=== PATIENT | female | born 1960 | race Caucasian/White ===

== ENCOUNTER 2020-08-31 18:58 | Inpatient (IN) | payer MEDICAID ==
[~2020-08-31] VITALS: Ht 162.6 cm; Wt 79.5 kg
[2020-08-31] MEDS ORDERED: labetalol 20mg/4ml (5mg/ml) syringe IV ONE ×2 (19:10→19:40)
[2020-08-31 19:48] LABS: BASOPHILS # (AUTO) 0.1 X10'3 (0-0.2); BASOPHILS % (AUTO) 0.3 % (0-1); EOSINOPHILS % (AUTO) 0.1 % (0-6); HEMATOCRIT 51.2 % (35.0-45.0); HEMOGLOBIN 17.5 g/dl (12.0-16.0); LYMPHOCYTES # (AUTO) 0.7 X10'3 (1.1-4.8); LYMPHOCYTES % (AUTO) 4.2 % (21-51); MEAN CORPUSCULAR HEMOGLOBIN 32.6 PG (27.0-31.0); MEAN CORPUSCULAR HGB CONC 34.2 g/dL (33.0-36.5); MEAN CORPUSCULAR VOLUME 95.2 FL (78-98); MEAN PLATELET VOLUME 9.5 FL (7.4-10.4); MONOCYTES # (AUTO) 0.8 X10'3 (0-0.9); MONOCYTES % (AUTO) 5.3 % (2-12); NEUTROPHILS # (AUTO) 14.3 X10'3 (1.8-7.7); NEUTROPHILS % (AUTO) 90.1 % (42-75); PLATELET COUNT 262 X10'3 (140-440); RED BLOOD COUNT 5.37 X10'6 (4.20-5.60); RED CELL DISTRIBUTION WIDTH 13.3 % (11.5-14.5); WHITE BLOOD COUNT 15.9 X10'3 (4.5-11.0)
[2020-08-31 19:50] LABS: ALANINE AMINOTRANSFERASE 35 U/L (12-78); ALBUMIN 3.6 G/DL (3.4-5.0); ALBUMIN/GLOBULIN RATIO 0.9 (1.1-1.5); ALKALINE PHOSPHATASE 86 IU/L (46-116); ANION GAP 13 (8-16); ASPARTATE AMINO TRANSFERASE 35 U/L (10-37); BILIRUBIN,TOTAL 1.1 MG/DL (0.1-1.0); BLOOD UREA NITROGEN 24 MG/DL (7-18); BUN/CREATININE RATIO 14.2 (6.6-38.0); CHLORIDE 101 MMOL/L (99-107); CREATININE 1.69 MG/DL (0.40-0.90); GLUCOSE 308 MG/DL (70-104); POTASSIUM 3.9 MMOL/L (3.5-5.1); SODIUM 136 MMOL/L (135-145); TOTAL CARBON DIOXIDE 21.6 MMOL/L (24-32); TOTAL PROTEIN 7.8 G/DL (6.4-8.2); eGFR 31 ML/MIN
[2020-08-31] MEDS ORDERED: lisinopril 10 MG tablet PO ONE (19:55)
[2020-08-31 19:59] LABS: ETHANOL < 0.010 GM/DL (0.0-0.010)
[2020-08-31] MEDS ORDERED: lisinopril 20mg tablet PO ONE (20:00)
[2020-08-31 20:30] LABS: URINE AMPHETAMINE SCREEN NEGATIVE (Neg); URINE BARBITUATE SCREEN NEGATIVE (Neg); URINE BENZODIAZEPINES SCREEN NEGATIVE (Neg); URINE CANNABINOID SCREEN POSITIVE (Neg); URINE COCAINE SCREEN NEGATIVE (Neg); URINE METHADONE SCREEN NEGATIVE (Neg); URINE OPIATE SCREEN POSITIVE (Neg); URINE PHENCYCLIDINE SCREEN NEGATIVE (Neg)
[2020-08-31] MEDS ORDERED: LISI40TA13 PO (20:30)
[2020-08-31] MEDS ORDERED: potassium Cl 20 mEq SR tablet PO PRN ×2 (20:30)
[2020-08-31] MEDS ORDERED: magnesium hydroxide 30ml (MOM) UD suspension PO PRN (20:30)
[2020-08-31] MEDS ORDERED: acetaminophen 325mg tablet PO PRN (20:30)
[2020-08-31] MEDS ORDERED: potassium Cl 40MEQ/1/2NS 520ml 520 ML IV PRN ×2 (20:30)
[2020-08-31] MEDS ORDERED: HYDROcodone/acetaminophen 5mg/325mg tablet PO PRN (20:30)
[2020-08-31] MEDS ORDERED: CARV-50 PO (20:32)
[2020-08-31] MEDS ORDERED: LEVO75TA PO (20:32)
[2020-08-31] MEDS ORDERED: GABA-530 PO (20:32)
[2020-08-31] MEDS ORDERED: dextrose ORAL solution 15 GM/59 ML bottle PO PRN ×2 (20:35)
[2020-08-31] MEDS ORDERED: MESSAGE TO PHARMACY PO ONE (20:35)
[2020-08-31] MEDS ORDERED: insulin Lispro (HumaLOG) vial - multi-dose SQ SCH (20:35)
[2020-08-31] MEDS ORDERED: glucagon, human recombinant 1mg kit SUBCUT PRN (20:35)
[2020-08-31] MEDS ORDERED: dextrose 50%-water 50ml dispensing syringe IV PRN ×2 (20:35)
[2020-08-31 20:48] LABS: HEMOGLOBIN A1C 6.2 % (4.5-6.2)
[2020-08-31] MEDS: ondansetron/PF 4mg/2ml inj IV PRN (21:05)
[2020-08-31] MEDS: mag hydrox/Alum hydrox/simeth 30ml oral suspension PO PRN (21:06)
[2020-08-31] MEDS ORDERED: ESCI-8 PO (22:26)
[2020-09-01 01:30] LABS: ALANINE AMINOTRANSFERASE 43 U/L (12-78); ALBUMIN 3.7 G/DL (3.4-5.0); ALBUMIN/GLOBULIN RATIO 0.9 (1.1-1.5); ALKALINE PHOSPHATASE 83 IU/L (46-116); ANION GAP 12 (8-16); ASPARTATE AMINO TRANSFERASE 51 U/L (10-37); BILIRUBIN,TOTAL 1.1 MG/DL (0.1-1.0); BLOOD UREA NITROGEN 28 MG/DL (7-18); BUN/CREATININE RATIO 14.8 (6.6-38.0); CALCIUM 8.1 MG/DL (8.5-10.1); CHLORIDE 97 MMOL/L (99-107); CREATININE 1.89 MG/DL (0.40-0.90); GLUCOSE 239 MG/DL (70-104); POTASSIUM 4.1 MMOL/L (3.5-5.1); SODIUM 139 MMOL/L (135-145); TOTAL PROTEIN 7.9 G/DL (6.4-8.2); eGFR 27 ML/MIN
[2020-09-01] MEDS ORDERED: proCHLORperazine 10 MG/2 ml inj IV ONE (02:00)
[2020-09-01 07:49] LABS: BASOPHILS % (AUTO) 0.3 % (0-1); EOSINOPHILS % (AUTO) 0 % (0-6); HEMATOCRIT 48.2 % (35.0-45.0); HEMOGLOBIN 16.3 g/dl (12.0-16.0); LYMPHOCYTES # (AUTO) 1.2 X10'3 (1.1-4.8); LYMPHOCYTES % (AUTO) 8.5 % (21-51); MEAN CORPUSCULAR HEMOGLOBIN 32.1 PG (27.0-31.0); MEAN CORPUSCULAR HGB CONC 33.7 g/dL (33.0-36.5); MEAN PLATELET VOLUME 9.3 FL (7.4-10.4); MONOCYTES # (AUTO) 1.7 X10'3 (0-0.9); MONOCYTES % (AUTO) 12.4 % (2-12); NEUTROPHILS % (AUTO) 78.8 % (42-75); PLATELET COUNT 254 X10'3 (140-440); RED BLOOD COUNT 5.07 X10'6 (4.20-5.60); RED CELL DISTRIBUTION WIDTH 13.5 % (11.5-14.5); WHITE BLOOD COUNT 13.9 X10'3 (4.5-11.0)
[2020-09-01] MEDS ORDERED: nitroGLYCERIN 0.4mg SUBLingual tab SL PRN (07:50)
[2020-09-01] MEDS ORDERED: metoprolol tartrate 1mg/ml inj IV PRN (07:50)
[2020-09-01] MEDS ORDERED: regadenoson 0.4mg/5ml syringe IV PRN (07:50)
[2020-09-01] MEDS ORDERED: aminophylline 250mg/10ml inj. IV PRN (07:50)
[2020-09-01] MEDS ORDERED: aspirin 81mg tablet.DR PO ONE (07:55)
[2020-09-01] MEDS ORDERED: lisinopril 10 MG tablet PO SCH (08:00)
[2020-09-01] MEDS: K and/or MAG REPLACEMENT MC SCH ×2 (08:00→20:00)
[2020-09-01] MEDS ORDERED: heparin, porcine 5000 units/ml vial SQ SCH (08:00)
[2020-09-01] MEDS ORDERED: levoTHYROXINE 75mcg tablet PO SCH (08:00)
[2020-09-01] MEDS ORDERED: carVEDilol 12.5mg tablet PO SCH (08:00)
[2020-09-01] MEDS ORDERED: non-formulary drug (Lisinopril* 1 TAB) PO SCH (08:00)
[2020-09-01] MEDS ORDERED: heparin 10,000 units/1 ML INJ IV ONE (08:25)
[2020-09-01] MEDS: gabapentin 100mg capsule PO SCH ×2 (08:45→19:52)
[2020-09-01] MEDS: lisinopril 20mg tablet PO SCH (08:45)
[2020-09-01] MEDS: carVEDilol 12.5mg tablet PO SCH ×2 (08:45→19:53)
[2020-09-01] MEDS: aspirin 81mg tablet.DR PO SCH (08:45)
[2020-09-01 09:36] LABS: PARTIAL THROMBOPLASTIN TIME 30 SECONDS (22-32)
[2020-09-01] MEDS: heparin 25,000 UNIT/250ml bag 250 ML IV SCH (09:38)
[2020-09-01] MEDS: mag hydrox/Alum hydrox/simeth 30ml oral suspension PO PRN ×2 (09:39→15:48)
[2020-09-01 09:47] LABS: CHOL/HDL RATIO 2.4 (0.00-4.99); CHOLESTEROL 178 MG/DL (0-200); HDL CHOLESTEROL 73 MG/DL (35-60); LDL CHOLESTEROL 70 MG/DL (50-100); TRIGLYCERIDES 185 MG/DL (20-135)
--- NOTE | 2020-09-01 10:25 | NUR ---
pt moved to bed 5 for procedure
[2020-09-01] MEDS ORDERED: PERFLUTREN PROTEIN-A MICROSPHR 0.22 MG/ML 3ML VIAL IV ONE (11:00)
[2020-09-01] MEDS: ondansetron/PF 4mg/2ml inj IV PRN ×2 (11:08→17:33)
--- NOTE | 2020-09-01 11:50 | NUR ---
Patient in room PCU 3027. I have received report from Celso LOCKE in ER and had the opportunity to ask questions. Pt arrive to unit at 1149 and care assumed.
[2020-09-01 12:00] VITALS: BP 162/84
[2020-09-01 15:00] VITALS: BP 165/79
[2020-09-01] MEDS: HYDROcodone/acetaminophen 10/325mg tab PO PRN ×2 (15:45→20:42)
[2020-09-01] MEDS: heparin 10,000 units/1 ML INJ IV PRN (16:50)
--- NOTE | 2020-09-01 17:29 | NUR ---
Critical Lab value: Troponin; Dr. Radha slade. "RE: Oliver Strong: 3027B: Troponin 1.20 (previous value 1.7), Dk Mckeon #[id number]"
[2020-09-01 18:00] VITALS: BP 158/101
--- NOTE | 2020-09-01 18:10 | NUR ---
Problems reprioritized. Patient report given, questions answered & plan of care reviewed with Pebbles LOCKE. Pt IV patent. pt denies chest pain. no sob. no s/sx acute distress
[2020-09-01] MEDS: pantoprazole 40mg Tablet.DR PO SCH (19:53)
[2020-09-01] MEDS: ESCITALOPRAM OXALATE 5 MG TABLET PO SCH (20:42)
[2020-09-01 22:00] VITALS: BP 100/50
[2020-09-01 22:10] LABS: H PYLORI ANTIBODY POSITIVE (Neg)
[2020-09-02] VITALS (15 sets, daily range): BP systolic 100–182; BP diastolic 48–90
[2020-09-02] MEDS: hyDRALAzine 10mg tablet PO SCH ×3 (00:17→17:29)
[2020-09-02] MEDS: ondansetron/PF 4mg/2ml inj IV PRN ×3 (00:20→18:47)
--- NOTE | 2020-09-02 06:03 | NUR ---
Problems reprioritized. Patient report given, questions answered & plan of care reviewed with CORNELIA Cyr.
--- NOTE | 2020-09-02 06:59 | NUR ---
Patient in room PCU 3027. I have received report from Pebbles LOCKE and had the opportunity to ask questions and assume patient care. Pt right side lying, blankets pulled up to chin, chest rising and falling evenly, Heparin on hold. SRx2, CL within reach, BLL. no s/sx acute distress. Addendum: 09/02/20 at 0705 by Klarissa Pack RN note: heparin on hold for lab draw.
[2020-09-02 07:38] LABS: BASOPHILS # (AUTO) 0.1 X10'3 (0-0.2); BASOPHILS % (AUTO) 0.8 % (0-1); EOSINOPHILS # (AUTO) 0.1 X10'3 (0-0.9); EOSINOPHILS % (AUTO) 1.3 % (0-6); HEMATOCRIT 40.4 % (35.0-45.0); HEMOGLOBIN 13.9 g/dl (12.0-16.0); LYMPHOCYTES # (AUTO) 1.5 X10'3 (1.1-4.8); LYMPHOCYTES % (AUTO) 16.4 % (21-51); MEAN CORPUSCULAR HEMOGLOBIN 32.8 PG (27.0-31.0); MEAN CORPUSCULAR HGB CONC 34.5 g/dL (33.0-36.5); MEAN CORPUSCULAR VOLUME 95.3 FL (78-98); MEAN PLATELET VOLUME 9.2 FL (7.4-10.4); MONOCYTES # (AUTO) 1.1 X10'3 (0-0.9); MONOCYTES % (AUTO) 11.8 % (2-12); NEUTROPHILS # (AUTO) 6.5 X10'3 (1.8-7.7); NEUTROPHILS % (AUTO) 69.7 % (42-75); PLATELET COUNT 197 X10'3 (140-440); RED BLOOD COUNT 4.24 X10'6 (4.20-5.60); RED CELL DISTRIBUTION WIDTH 13.4 % (11.5-14.5); WHITE BLOOD COUNT 9.3 X10'3 (4.5-11.0)
[2020-09-02] MEDS: K and/or MAG REPLACEMENT MC SCH ×2 (08:00→20:00)
[2020-09-02 08:15] LABS: ALANINE AMINOTRANSFERASE 45 U/L (12-78); ALBUMIN 3.1 G/DL (3.4-5.0); ALBUMIN/GLOBULIN RATIO 0.9 (1.1-1.5); ALKALINE PHOSPHATASE 58 IU/L (46-116); ANION GAP 6 (8-16); ASPARTATE AMINO TRANSFERASE 85 U/L (10-37); BILIRUBIN,TOTAL 1.2 MG/DL (0.1-1.0); BLOOD UREA NITROGEN 41 MG/DL (7-18); BUN/CREATININE RATIO 28.1 (6.6-38.0); CALCIUM 7.9 MG/DL (8.5-10.1); CHLORIDE 100 MMOL/L (99-107); CREATININE 1.46 MG/DL (0.40-0.90); GLUCOSE 137 MG/DL (70-104); POTASSIUM 4.2 MMOL/L (3.5-5.1); SODIUM 134 MMOL/L (135-145); TOTAL CARBON DIOXIDE 27.7 MMOL/L (24-32); TOTAL PROTEIN 6.4 G/DL (6.4-8.2); eGFR 37 ML/MIN
[2020-09-02] MEDS: gabapentin 100mg capsule PO SCH ×2 (08:41→19:42)
[2020-09-02] MEDS: levoTHYROXINE 100mcg tablet PO SCH (08:41)
[2020-09-02] MEDS: pantoprazole 40mg Tablet.DR PO SCH (08:41)
--- NOTE | 2020-09-02 08:48 | NUR ---
Pt to stress test pt left unit at 0845 to go to stress test. Heparin running at 900. BP meds, asa held until pt returns. pt without HTN. no s/sx acute distress
[2020-09-02] MEDS ORDERED: regadenoson 0.4mg/5ml syringe IV PRN (09:00)
[2020-09-02] MEDS: carVEDilol 12.5mg tablet PO SCH ×2 (11:43→19:41)
[2020-09-02] MEDS: HYDROcodone/acetaminophen 10/325mg tab PO PRN ×2 (11:43→18:47)
[2020-09-02] MEDS: aspirin 81mg tablet.DR PO SCH (11:44)
[2020-09-02] MEDS: lisinopril 20mg tablet PO SCH (11:44)
[2020-09-02] MEDS: heparin 25,000 UNIT/250ml bag 250 ML IV SCH ×2 (14:39→17:28)
--- NOTE | 2020-09-02 17:14 | NUR ---
Dr. Valdivia to see patient Dr. Valdivia to bedside, spoke at length with pt. discussed risks vs benefits of medication/medical management/life style changes versus angiogram. Pt prefers medical therapy to angiogram. new orders received to start pt on lipitor 40mg Qday starting tonight. MD discussed pt to lose 10 lbs, abstain from alcohol, take medications regularly and get exercise. Pt adamantly agreed this is the route she prefers. Doc OK pt to eat heart healthy diet.
--- NOTE | 2020-09-02 18:26 | NUR ---
Problems reprioritized. Patient report given, questions answered & plan of care reviewed with Pebbles LOCKE. Heparin running at 900/hr.
[2020-09-02] MEDS: heparin 10,000 units/1 ML INJ IV PRN (19:46)
[2020-09-02] MEDS: ESCITALOPRAM OXALATE 5 MG TABLET PO SCH (20:25)
[2020-09-02] MEDS ORDERED: insulin glargine (Lantus) pen - multi-dose SQ SCH (21:00)
[2020-09-02] MEDS ORDERED: atorvastatin 20mg tablet PO SCH (21:00)
[2020-09-03] MEDS: hyDRALAzine 10mg tablet PO SCH ×2 (00:06→07:51)
[2020-09-03 02:00] VITALS: BP 112/54
[2020-09-03] MEDS: ondansetron/PF 4mg/2ml inj IV PRN (02:02)
[2020-09-03] MEDS: HYDROcodone/acetaminophen 10/325mg tab PO PRN ×2 (02:03→09:20)
[2020-09-03 02:14] LABS: BASOPHILS # (AUTO) 0.1 X10'3 (0-0.2); BASOPHILS % (AUTO) 1.3 % (0-1); EOSINOPHILS # (AUTO) 0.2 X10'3 (0-0.9); EOSINOPHILS % (AUTO) 2.5 % (0-6); HEMOGLOBIN 13.2 g/dl (12.0-16.0); LYMPHOCYTES # (AUTO) 1.7 X10'3 (1.1-4.8); LYMPHOCYTES % (AUTO) 26.2 % (21-51); MEAN CORPUSCULAR HEMOGLOBIN 32.3 PG (27.0-31.0); MEAN CORPUSCULAR HGB CONC 33.9 g/dL (33.0-36.5); MEAN CORPUSCULAR VOLUME 95.1 FL (78-98); MEAN PLATELET VOLUME 9.2 FL (7.4-10.4); MONOCYTES # (AUTO) 0.7 X10'3 (0-0.9); MONOCYTES % (AUTO) 11.6 % (2-12); NEUTROPHILS # (AUTO) 3.8 X10'3 (1.8-7.7); NEUTROPHILS % (AUTO) 58.4 % (42-75); PLATELET COUNT 179 X10'3 (140-440); WHITE BLOOD COUNT 6.4 X10'3 (4.5-11.0)
[2020-09-03 02:15] LABS: ALANINE AMINOTRANSFERASE 53 U/L (12-78); ALBUMIN 2.8 G/DL (3.4-5.0); ALBUMIN/GLOBULIN RATIO 0.8 (1.1-1.5); ALKALINE PHOSPHATASE 58 IU/L (46-116); ANION GAP 5 (8-16); ASPARTATE AMINO TRANSFERASE 77 U/L (10-37); BILIRUBIN,TOTAL 0.8 MG/DL (0.1-1.0); BLOOD UREA NITROGEN 44 MG/DL (7-18); BUN/CREATININE RATIO 30.3 (6.6-38.0); CALCIUM 7.8 MG/DL (8.5-10.1); CHLORIDE 101 MMOL/L (99-107); CREATININE 1.45 MG/DL (0.40-0.90); GLUCOSE 111 MG/DL (70-104); POTASSIUM 4.5 MMOL/L (3.5-5.1); SODIUM 137 MMOL/L (135-145); TOTAL CARBON DIOXIDE 30.6 MMOL/L (24-32); TOTAL PROTEIN 6.1 G/DL (6.4-8.2); eGFR 37 ML/MIN
--- NOTE | 2020-09-03 06:03 | NUR ---
Patient in room PCU 3027. I have received report from Pebbles LOCKE and had the opportunity to ask questions and assume patient care.
--- NOTE | 2020-09-03 06:20 | NUR ---
Problems reprioritized. Patient report given, questions answered & plan of care reviewed with Norma Zapata RN.
[2020-09-03 07:00] VITALS: BP 112/50
[2020-09-03] MEDS: levoTHYROXINE 100mcg tablet PO SCH (07:50)
[2020-09-03] MEDS: aspirin 81mg tablet.DR PO SCH (07:50)
[2020-09-03] MEDS: pantoprazole 40mg Tablet.DR PO SCH (07:51)
[2020-09-03] MEDS: lisinopril 20mg tablet PO SCH (07:51)
[2020-09-03] MEDS: gabapentin 100mg capsule PO SCH (07:51)
[2020-09-03] MEDS: carVEDilol 12.5mg tablet PO SCH (07:52)
[2020-09-03] MEDS: K and/or MAG REPLACEMENT MC SCH (08:00)
--- NOTE | 2020-09-03 09:10 | NUR ---
Dr. Meng and Nurse at bedside. MD would like to Discharge, a ride may be needed if pt cannot find a person to travel. Patient's Heparin Drip DCD. We will continue to monitor.
[2020-09-03] MEDS ORDERED: ATOR20TA66 PO (09:16)
[2020-09-03] MEDS ORDERED: PANT40TA54 PO (09:16)
[2020-09-03] MEDS ORDERED: ASPI-1071 PO (09:16)
[2020-09-03] MEDS ORDERED: CARV-50 PO (09:16)
[2020-09-03 11:00] VITALS: BP 123/71
--- NOTE | 2020-09-03 11:00 | NUR ---
Nurse and patient went over the DC paperwork, pt was able to obtain a ride and DC time will be apprx. 12. Patient was in bed and wanting to take shower prior to going home. All discharge instruction were educated on and advised to immediately STOP any and all drug use. Pt acknowledged directions. We will continue to monitor.
--- NOTE | 2020-09-03 12:51 | NUR ---
Patient OK to discharge per MD orders. All discharge instructions were educated on and gone over. Patient was able to understand and verbalize understandings. PIV was removed, Tele removed and returned. All patients items were collected and sent with patient. All prescriptions were called and verified via phone. Patient called daughter to pick her up. Pts daughter called to alert pt and nurse she was in main lobby waiting. Patient was escorted via wheelchair and aide with all discharge instructions and personal belongings. Patient was brought to main entrance and pt able to transfer into car herself. Family appeared to be happy and content with going home.
== END 2020-09-03 12:54 | disposition home or self-care (01) | DRG 190 ==
LOC: ER 18:59 → ED HOLD 20:31 → PCU 3S 09-01 11:50
PROVIDERS: ADMIT Internal Medicine; ATTEND Family Medicine
PROC: 4A02XM4 Measurement of Cardiac Total Activity, External Approach (ICD-10-PCS; principal; 2020-09-02)
PROC: 3E073KZ Introduction of Other Diagnostic Substance into Coronary Artery, Percutaneous Approach (ICD-10-PCS; 2020-09-02)
DX: I21.4 Non-ST elevation (NSTEMI) myocardial infarction (principal); N17.9 Acute kidney failure, unspecified; I20.9 Angina pectoris, unspecified; I16.1 Hypertensive emergency; D72.829 Elevated white blood cell count, unspecified; E03.9 Hypothyroidism, unspecified; F12.90 Cannabis use, unspecified, uncomplicated; G89.4 Chronic pain syndrome; I12.9 Hypertensive chronic kidney disease with stage 1 through stage 4 chronic kidney disease, or unspecified chronic kidney disease; N18.9 Chronic kidney disease, unspecified; Z80.7 Family history of other malignant neoplasms of lymphoid, hematopoietic and related tissues; Z82.49 Family history of ischemic heart disease and other diseases of the circulatory system; Z85.819 Personal history of malignant neoplasm of unspecified site of lip, oral cavity, and pharynx; Z85.828 Personal history of other malignant neoplasm of skin; Z87.891 Personal history of nicotine dependence; Z91.19 Patient's noncompliance with other medical treatment and regimen; Z88.8 Allergy status to other drugs, medicaments and biological substances; Z79.899 Other long term (current) drug therapy
CPT/HCPCS: 36415; 71045; 78452; 80053; 80061; 80305; 80320; 82948; 83036; 83735; 83880; 84443; 84484; 85025; 85610; 85730; 86677; 87081; 93005; 93017; 93306; 93975; 96375; 99285; A9500; G0378; J0780; J1644; J1815; J2405; J2785; J3490; Q9956

== ENCOUNTER 2021-09-15 19:01 | Emergency (ER) | payer MEDICAID ==
[~2021-09-15] VITALS: Ht 162.6 cm; Wt 79.5 kg
[~2021-09-15 19:01] MED LIST: ASPI-1071 PO; ATOR20TA66 PO; CARV-50 PO; ESCI-8 PO; GABA-530 PO; LEVO75TA PO; LISI40TA13 PO; PANT40TA54 PO
[2021-09-15] MEDS ORDERED: HYDROchlorothiazide 25mg tablet PO STA (22:24)
[2021-09-15] MEDS ORDERED: carVEDilol 12.5mg tablet PO STA (22:24)
[2021-09-15] MEDS ORDERED: HYDR25TA5 PO (23:08)
[2021-09-15 23:19] VITALS: BP 193/72
== END 2021-09-15 23:23 | disposition home or self-care (01) ==
LOC: ER 19:03
DX: I10 Essential (primary) hypertension (principal); F41.9 Anxiety disorder, unspecified; F12.10 Cannabis abuse, uncomplicated; Z88.1 Allergy status to other antibiotic agents; Z88.8 Allergy status to other drugs, medicaments and biological substances; Z79.899 Other long term (current) drug therapy
CPT/HCPCS: 99284